=== PATIENT | male | born 1955 | race Caucasian/White ===

== ENCOUNTER 2019-11-01 01:33 | Outpatient (CLI) | payer OTHER, SELFPAY ==
[2019-11-01 18:53] LABS: SARS-CoV-2 RNA PCR Negative
== END 2019-11-01 01:34 | disposition home or self-care (01) ==
PROVIDERS: PCP Family Medicine; Visit Provider Internal Medicine Gastroenterology
DX: Z01.812 Encounter for preprocedural laboratory examination (principal); Z20.828 Contact with and (suspected) exposure to other viral communicable diseases
CPT/HCPCS: 87635; C9803; U0003

== ENCOUNTER 2019-11-03 00:51 | Day surgery (SDC) | payer OTHER, SELFPAY ==
[2019-10-31 15:30] VITALS: BMI 34.8
[2019-11-03 10:28] VITALS: BP 112/81; PULSE 111; RESP 20; TEMP 36.9; O2SAT 97; BMI 36.3
--- NOTE | 2019-11-03 10:48 | WPDANESEPPF ---
Anes - Initial Pre Proc Eval Procedure: Operation Date: 11/03/19 11:00 Proposed Procedures p Colonoscopy - Dakota Kenny MD Date/Time: 11/03/19 10:48 Surgeon: Dakota Kenny MD Pre Op Diagnosis: Diarrhea Patient Data Age: 64 Gender: M Height: 6 ft 2 in Weight: 128.2 kg Last Vital Signs Temp 98.4 F 11/03/19 10:28 Pulse 111 H 11/03/19 10:28 Resp 20 11/03/19 10:28 BP 112/81 11/03/19 10:28 Pulse Ox 97 11/03/19 10:28 Allergies Allergy/AdvReac Type Severity Reaction Status Date / Time Penicillins Allergy Severe ANAPHYLAXIS Verified 11/03/19 10:26 ENVIRONMENTAL Allergy Intermediate RHINITIS, Uncoded 11/03/19 10:26 ALLERGENS--CATS, DUST, CONGESTION GOLDENROD Home Medications Medication Instructions Recorded Confirmed Type balsalazide 2,250 mg PO TID 10/31/19 10/31/19 History cholecalciferol (vitamin D3) 10 mcg PO DAILY 10/31/19 10/31/19 History [Vitamin D3] diphenhydramine HCl [Allergy 25 mg PO HS 10/31/19 10/31/19 History (diphenhydramine)] oxucyqyk-cnctx-jra3-C-chelsie-bor 1 tablet PO DAILY 10/31/19 10/31/19 History [Awhcdpzd-Ecpjo-XOW(with boron)] lactobacillus combination no.8 3,000 mmu cells PO DAILY 10/31/19 10/31/19 History [Adult Probiotic] losartan-hydrochlorothiazide 1 tablet PO DAILY 10/31/19 10/31/19 History dixeqafy-vje-yaxid-vit K-lycop 1 tablet PO DAILY 10/31/19 10/31/19 History [Men's Multivitamin] omega 7-str-hud-fish oil [Fish Oil] 1 cap PO DAILY 10/31/19 10/31/19 History triamcinolone acetonide 1 spray INTRANASAL DAILY 10/31/19 10/31/19 History Patient hx anesthesia problems: none Family hx anesthesia problems: none PMFSH Past Medical History Medical History (Updated 11/03/19 @ 10:49 by Speedy Connolly MD) Arthritis Hypertension MONICA (obstructive sleep apnea) Anes - Eval Final PreProcedure Day of Procedure 11/03/19 10:48 Patient weight: obese Heart: regular rate and rhythm Lungs: clear to auscultation Airway: Mallampati scale class II Neurological: alert and oriented Last oral intake: >/= 8 hours ASA classification: III Emergent: no Anesthetic plan: proceed Anesthesia type and monitoring: general GIVS and standard monitoring Informed Consent: The patient's anesthetic plan and its attendant risks and benefits were discussed with the patient/family/POA. Questions were solicited and answers provided to the satisfaction of the patient/family/POA.
[2019-11-03] MEDS: LACTATED RINGERS 1,000 ML 150 ML IV CONT (10:52)
--- NOTE | 2019-11-03 11:11 | P.HP_ITS ---
History of Present Illness History of Present Illness Consent: Risks, benefits, and alternatives have been discussed and questions answered. Patient agrees to proceed with procedure. Chief complaint: Diarrhea Narrative: Obed Mello is a 64 year old W male referred for colonoscopy secondary to a 3 week history of diarrhea with multiple liquid bowel movements per day. He had 1 episode of hematochezia. Patient has known left- sided ulcerative colitis. His last colonoscopy was 6 years ago which revealed hemorrhoids and mild left-sided colitis. Patient was camping but he states his symptoms are present prior to this time. No sores or well water. No weight loss. No antibiotics. He states he had stool studies obtained the doctor calories office reportedly is are negative. [facility] Past Medical History Medical History (Updated 11/03/19 @ 11:13 by Dakota Kenny MD) Arthritis Chronic ulcerative colitis Hypertension MONICA (obstructive sleep apnea) Surgical History Surgical History (Updated 11/03/19 @ 11:13 by Dakota Kenny MD) History of carpal tunnel release History of right hip replacement Meds Home Medications and Allergies Home Medications Medication Instructions Recorded Confirmed Type balsalazide 2,250 mg PO TID 10/31/19 10/31/19 History cholecalciferol (vitamin D3) 10 mcg PO DAILY 10/31/19 10/31/19 History [Vitamin D3] diphenhydramine HCl [Allergy 25 mg PO HS 10/31/19 10/31/19 History (diphenhydramine)] hlbdfamt-crikn-yfh7-C-chelsie-bor 1 tablet PO DAILY 10/31/19 10/31/19 History [Rhynzhrc-Xjgsl-RIR(with boron)] lactobacillus combination no.8 3,000 mmu cells PO DAILY 10/31/19 10/31/19 History [Adult Probiotic] losartan-hydrochlorothiazide 1 tablet PO DAILY 10/31/19 10/31/19 History iemmtgdo-lih-befes-vit K-lycop 1 tablet PO DAILY 10/31/19 10/31/19 History [Men's Multivitamin] omega 1-mri-zbs-fish oil [Fish Oil] 1 cap PO DAILY 10/31/19 10/31/19 History triamcinolone acetonide 1 spray INTRANASAL DAILY 10/31/19 10/31/19 History Allergies Allergy/AdvReac Type Severity Reaction Status Date / Time Penicillins Allergy Severe ANAPHYLAXIS Verified 11/03/19 10:26 ENVIRONMENTAL Allergy Intermediate RHINITIS, Uncoded 11/03/19 10:26 ALLERGENS--CATS, DUST, CONGESTION GOLDENROD Vital Signs Vital Signs - 24 hr 11/03/19 10:28 Temperature 36.9 C Pulse Rate 111 H Respiratory Rate 20 Blood Pressure 112/81 Pulse Oximetry 97 Exam Const: Orientation/consciousness: patient oriented x3 Resp: Auscultation: clear to auscultation bilaterally Cardio: Rate: regular rate Rhythm: regular rhythm Heart sounds: no murmurs GI: GI Palp: Yes Soft to palpation, No Tenderness to palpation present (GI), Yes No hepatosplenomegaly present and No Palpable mass present Auscultation: normal bowel sounds Neuro: General: patient oriented x3 and no focal motor deficits Extrem: General: no pedal edema Assessment and Plan Additional Plan colonoscopy for evaluation of subacute diarrhea and history of chronic ulcerative colitis
[2019-11-03 11:37] VITALS: BP 92/64; PULSE 94; RESP 21; O2SAT 97
[2019-11-03 11:47] VITALS: BP 107/69; PULSE 97; RESP 20; O2SAT 97
[2019-11-03 11:57] VITALS: BP 103/76; PULSE 92; RESP 18; O2SAT 98
== END 2019-11-03 12:20 | disposition home or self-care (01) ==
PROVIDERS: PCP Family Medicine; Visit Provider Internal Medicine Gastroenterology
PROC: 0DJD8ZZ Inspection of Lower Intestinal Tract, Via Natural or Artificial Opening Endoscopic (ICD-10-PCS; CPT 45378; principal; 2019-11-03 11:00)
DX: K51.90 Ulcerative colitis, unspecified, without complications (principal); K63.5 Polyp of colon; D12.3 Benign neoplasm of transverse colon; K62.89 Other specified diseases of anus and rectum; I10 Essential (primary) hypertension; G47.33 Obstructive sleep apnea (adult) (pediatric); E66.9 Obesity, unspecified; Z68.36 Body mass index [BMI] 36.0-36.9, adult
CPT/HCPCS: 45385; 45380; 88305; J2370; J7120

== ENCOUNTER 2020-05-09 22:22 | Emergency (ER) | payer OTHER, SELFPAY ==
[2020-05-09 22:26] VITALS: BP 179/103; PULSE 117; RESP 12; TEMP 36.7; O2SAT 96
--- NOTE | 2020-05-10 00:02 | ED.EPISTAXIS ---
HPI - Epistaxis General Chief complaint: Epistaxis Stated complaint: epitaxis for 1 hour, htn Time Seen by Provider: 05/09/20 23:56 Source: patient and family Mode of arrival: ambulatory Limitations: no limitations History of Present Illness HPI Narrative: Patient 64 years old white male presents with left nostril bleeding started 3 hours prior to arrival to the emergency room after trying to blow his nose. Patient denying having similar symptoms, does not take blood thinner. Patient has been on Nasacort for years. Related Data Home Medications Medication Instructions Recorded Confirmed Adult Probiotic 3,000 mmu cells PO DAILY 10/31/19 10/31/19 Men's Multivitamin 1 tablet PO DAILY 10/31/19 10/31/19 cholecalciferol (vitamin D3) 10 mcg PO DAILY 10/31/19 10/31/19 [Vitamin D3] diphenhydramine HCl [Allergy 25 mg PO HS 10/31/19 10/31/19 (diphenhydramine)] qvnnaxeo-ozzlx-qkd7-C-chelsie-bor 1 tablet PO DAILY 10/31/19 10/31/19 [Sqnpyhbi-Xdgeh-ZSR(with boron)] losartan-hydrochlorothiazide 1 tablet PO DAILY 10/31/19 10/31/19 omega 0-ajp-frt-fish oil [Fish Oil] 1 cap PO DAILY 10/31/19 10/31/19 triamcinolone acetonide 1 spray INTRANASAL DAILY 10/31/19 10/31/19 Allergies Allergy/AdvReac Type Severity Reaction Status Date / Time Penicillins Allergy Severe ANAPHYLAXIS Verified 05/10/20 00:10 ENVIRONMENTAL Allergy Intermediate RHINITIS, Uncoded 05/10/20 00:10 ALLERGENS--CATS, DUST, CONGESTION GOLDENROD Review of Systems Review of Systems: Narrative: CONSTITUTIONAL: Denies fever, chills, or sweats. EYES: Denies visual changes, redness, or discharge. ENT: Denies rhinorrhea, congestion, sore throat, or otalgia. CARDIOVASCULAR: Denies chest pain, palpitations, or edema. RESPIRATORY: Denies cough or dyspnea. GASTROINTESTINAL: Denies abdominal pain, nausea, vomiting, or diarrhea. GENITOURINARY: Denies dysuria or hematuria. SKIN: Denies rash or itching. MUSCULOSKELETAL: Denies back pain, joint pain, or myalgia. NEUROLOGIC: Denies headache, numbness, or weakness. PSYCHIATRIC: Denies anxiety or depression. [facility] Past Medical History Medical History Arthritis Chronic ulcerative colitis Hypertension MONICA (obstructive sleep apnea) Surgical History Surgical History History of carpal tunnel release History of right hip replacement Social History Social History Gender identity (if verbalized by the patient): Male Exam Narrative: Exam Narrative: General appearance: Well-developed, well-nourished Skin: Normal color Head: Normocephalic, nontraumatic Eyes: Clear conjunctiva ENT: Left nostril showed dried blood, no active bleeding, unable to locate the source of bleeding. Neck: Supple, nontender Chest and respiratory: Airway patent, no respiratory distress, no accessory muscle use Heart: Regular rate/rhythm Vascular: Normal peripheral pulses, normal capillary refill. Neurologic: Alert and oriented ?3, ULTRASOUND TECHNOLOGIST is normal as tested, no gross motor deficit Course Course Emergency Course: Stable, improving Reevaluation(s) Reevaluation #1: Nasal exam showed no active bleeding, just dried blood. Unable to locate the source of bleeding. Patient was able to SNF and get rid of all the blood clot in the nasal cavity. Was able to stand up and walk in the ER for at least 15 minutes without activation of the nasal bleed. Patient declined any nasal packing at this time and would like to go home and see how it goes. Date: 05/10/20 Time: 01:51 Vital Signs Vital signs: Vital Signs Temperature 36.7 C
[2020-05-10 00:07] VITALS: BP 150/102; PULSE 111; RESP 20; O2SAT 96
[2020-05-10 01:50] VITALS: BP 147/90; PULSE 100; RESP 21; O2SAT 97
== END 2020-05-10 01:50 | disposition home or self-care (01) ==
PROVIDERS: Emergency Provider Emergency Medicine; PCP Family Medicine
DX: R04.0 Epistaxis (principal); M19.90 Unspecified osteoarthritis, unspecified site; I10 Essential (primary) hypertension; G47.30 Sleep apnea, unspecified
CPT/HCPCS: 99283

== ENCOUNTER 2020-12-10 10:33 | Outpatient (CLI) | payer OTHER, SELFPAY ==
--- NOTE | ~2020-12-10 | XR_ITS ---
EXAMINATION: XR lg joint inject/asp w image DATE: 12/10/2020 11:36 INDICATION: Left hip osteoarthritis TECHNIQUE: A time-out was performed to verify the patient's name, date of , and procedure to b e performed. The procedure including the risks, benefits, and alternatives was discussed with the pat ient. Risks discussed included bleeding and infection. The patient understood the risks and agreed to proceed. The skin overlying the left hip joint was prepped and draped in usual sterile fashion. An esthetic was administered with 1% lidocaine subcutaneously. A 22 G needle was advanced under fluoros copic guidance into the joint. Injection of 1 mL of Omnipaque 240 confirmed intra-articular position of the needle. Subsequently, injectate consisting of 4.5 mm of a 2:1 mixture of 0.25% Sensorcaine: 10 mg/mL Kenalog for a total dosage of 15 mg Kenalog was instilled. Washout of contrast was seen conf irming intra-articular administration. The needle was removed and the entry site was cleaned and dres sed. There were no immediate complications. Fluoroscopy exposure time was 0.1 minutes. The total num maricruz of images was 2. FINDINGS: Real-time fluoroscopy demonstrates the needle in the left hip joint. Patient's pain prior t o procedure:04/25. Patient's pain following the procedure: 03/25. IMPRESSION: 1. Successful left hip joint injection of local anesthetic and steroid with decrease in the patient's presenting pain. Reviewed, dictated and finalized at location A. IMPRESSION: 1. Successful left hip joint injection of local anesthetic and steroid with dec rease in the patient's presenting pain.
== END 2020-12-10 10:34 | disposition home or self-care (01) ==
LOC: ANHIMG 10:36
PROVIDERS: PCP Family Medicine; Visit Provider Orthopaedic Surgery
DX: M16.12 Unilateral primary osteoarthritis, left hip (principal)
CPT/HCPCS: 20610; 77002; J3301; Q9966

== ENCOUNTER 2023-02-09 10:47 | Outpatient (CLI) | payer MEDICARE, SELFPAY ==
[2023-02-09 11:18] LABS: Hematocrit 40.9 % (42.0-52.0); Hemoglobin 13.6 g/dL (14.0-18.0)
--- NOTE | 2023-02-09 11:18 | ECG_ITS ---
Measurements Intervals [place] Rate: 109 P: 65 HI: 144 QRS: 31 QRSD: 93 T: 42 QT: 330 QTc: 445 Interpretive Statements SINUS TACHYCARDIA ABNORMAL ECG NO PREVIOUS ECG AVAILABLE FOR COMPARISON Electronically Signed On 02-09-2023 11:33:11 ELECTRONIC SCALE TESTER by Jonh Gregorio D.O.
[2023-02-09 11:33] LABS: Albumin Level 4.2 g/dL (3.5-5.1); Estimated Glomerular Filt Rate > 60; Glucose 108 mg/dL (65-110)
[2023-02-09 12:22] LABS: Urine Cotinine NEGATIVE
== END 2023-02-09 10:48 | disposition home or self-care (01) ==
PROVIDERS: PCP Family Medicine; Visit Provider Orthopaedic Surgery
DX: M16.12 Unilateral primary osteoarthritis, left hip (principal); E78.5 Hyperlipidemia, unspecified; Z79.899 Other long term (current) drug therapy; I10 Essential (primary) hypertension; R94.31 Abnormal electrocardiogram [ECG] [EKG]
CPT/HCPCS: 80307; 82040; 82565; 82947; 85014; 85018; 93005

== ENCOUNTER 2023-04-08 07:57 | Outpatient (CLI) | payer MEDICARE, OTHER, SELFPAY ==
[2023-04-08 09:25] LABS: Basophils Absolute Auto 0.1 K/mm3 (0.0-0.1); Basophils Percent Auto 1.2 % (0.2-1.2); Eosinophils Absolute Auto 0.6 K/mm3 (0-0.3); Eosinophils Percent Auto 8.3 % (0-4.4); Hematocrit 42.2 % (42.0-52.0); Hemoglobin 13.9 g/dL (14.0-18.0); Immature Granulocyte Absolute 0.04 K/mm3 (0.00-0.031); Immature Granulocyte Percent A 0.6 % (0-0.5); Lymphocytes Absolute Auto 1.29 K/mm3 (0.9-3.2); Lymphocytes Percent Auto 18.9 % (18.3-44.2); Mean Corpuscular HGB Conc 32.9 g/dl (32-36); Mean Corpuscular Hemoglobin 31.7 pg (26-34); Mean Corpuscular Volume 96.3 fl (80-100); Mean Platelet Volume 8.8 fl (7.4-10.4); Monocytes Absolute Auto 0.7 K/mm3 (0.1-0.6); Monocytes Percent Auto 9.5 % (2.6-8.5); Neutrophils Absolute Auto 4.2 K/mm3 (1.3-6.7); Neutrophils Percent Auto 61.5 % (45.5-73.1); Platelet Count Result 364 k/mm3 (150-375); Red Blood Count 4.38 M/mm3 (4.6-6.20); Red Cell Distribution Width 13.3 % (11.5-14.5); White Blood Count 6.8 K/mm3 (4.5-10.0)
[2023-04-08 09:34] LABS: Albumin Level 4.4 g/dL (3.5-5.1)
[2023-04-08 09:35] LABS: Anion Gap 7 mmol/L (8-16); Blood Urea Nitrogen 20 mg/dL (9-20); Calcium 10.1 mg/dL (8.4-10.2); Carbon Dioxide 27 mmol/L (22-30); Chloride 103 mmol/L (98-107); Estimated Glomerular Filt Rate > 60; Glucose 101 mg/dL (65-110); Potassium 4.3 mmol/L (3.4-5.0); Sodium 137 mmol/L (137-145)
[2023-04-08 09:39] LABS: Urine Cotinine NEGATIVE
[2023-04-08 09:53] LABS: Hemoglobin A1C 5.2 % (<5.7)
[2023-04-08 10:49] LABS: MRSA (PCR) NOT DETECTED (NOT DETECTE)
== END 2023-04-08 07:58 | disposition home or self-care (01) ==
LOC: ANHSURGERY 08:04
PROVIDERS: Anesthesiology; PCP Family Medicine; Visit Provider Orthopaedic Surgery
DX: M16.12 Unilateral primary osteoarthritis, left hip (principal); I10 Essential (primary) hypertension; Z01.818 Encounter for other preprocedural examination
CPT/HCPCS: 36415; 80048; 80307; 82040; 83036; 85025; 87641

== ENCOUNTER 2023-05-04 01:09 | Day surgery (SDC) | payer MEDICARE, OTHER, SELFPAY ==
[2023-04-08 08:10] VITALS: BMI 36.9
--- NOTE | 2023-04-08 08:35 | PC.NURSE ---
Report to the Outpatient Waiting Room, entrance under the green pavilion located off [facility], at time __1000 on date ___05/04/23____. Planned Procedure Time: _1200 . Time changes happen often and if your time is changed the preop area will call you the afternoon before. - You and your visitor will be asked to self-screen and do not enter if you have any COVID symptoms. - A mask is optional within the hospital at this time. Patients may have clear liquids (water, carbonated beverages, clear teas, apple juice) until 3 hours prior to surgery (9:00 AM )with a maximum of 20 ounces. - No food from midnight until time of surgery - Infants may have breast milk until 4 hours before surgery, infant formula 6 hours prior to surgery. - Children will be allowed to drink immediately following surgery. If applicable, please bring a bottle or sippy cup to assist with drinking. Juice, water, soda, and popsicles are readily available. For infants on formula, please bring formula the day of surgery. Pacifiers are allowed. Take the following medications with a SIP of water the morning of surgery: ___NONE DO NOT STOP ANY OF YOUR OTHER PRESCRIPTION MEDICATIONS PRIOR TO SURGERY ?EXCEPT THE FOLLOWING Medications to discontinue per physician ___HOLD ALL VITAMINS AND SUPPLEMENTS 3 DAYS PRE OP .LAST DOSE MAY TAKE TYLENOL IF NEEDED FOR PAIN Please no make-up, nail urdu, hairspray, perfume, deodorant, or body powder the day of surgery. No jewelry (including any body piercings) or valuables the day of surgery, leave them at home. Please take a shower or bath the night before, or the morning of, surgery with an antibacterial soap. Wear comfortable, loose fitting clothing. Children are encouraged to wear pajamas. - Jewelry must be removed prior to entering the operating room. Rings and piercings that are not removed may be cut off. - The hospital will not accept responsibility for valuables. - Please leave all valuables, including medications, at home the day of surgery. If you are going home after surgery, a licensed batch mixing truck driver must drive you home. - NO public transportation without another adult if you receive anesthesia. - We recommend that an adult stay with you for 24 hours following discharge. - We also recommend that you do not drive, make important decision, drink alcoholic beverages, or take any drugs that were not prescribed by your health care provider for at least 24 hours after your discharge time. Follow any additional instructions given to you from your surgeon. If you or anyone in your household have experienced Covid symptoms in the past week, please notify your surgeon or the nurse liaison at the phone number below for possible testing. VERBAL AND WRITTEN instructions given to _PATIENT and asked if any additional questions and then verbalized understanding. Patient advised to call surgeon office or pre surgery nurse liaison [phone] if any additional questions.
[2023-04-08 09:09] VITALS: BP 135/92; PULSE 86; RESP 18; TEMP 37.2; O2SAT 98
[2023-05-04] VITALS (11 sets, daily range): BP systolic 120–140; BP diastolic 64–88; PULSE 83–111; RESP 12–18; TEMP 36.5–37.4; O2SAT 95–100
--- NOTE | ~2023-05-04 | XR_ITS ---
EXAMINATION: XR hip LT min 2V DATE: 05/04/2023 14:52 INDICATION: Postoperative evaluation following left total hip arthroplasty TECHNIQUE: Anteroposterior and lateral views of the left hip were obtained. COMPARISON: 02/01/2023 FINDINGS: Interval placement of a noncemented left total hip arthroplasty which appears well seated in near dunia tomic alignment. Expected soft tissue gas in the postoperative bed. No fractures identified. IMPRESSION: 1. Left total hip arthroplasty, negative for postoperative purposes. Reviewed, dictated and finalized at location A. IGHT TOOTH GEAR GENERATOR OPERATOR
[2023-05-04] MEDS: LACTATED RINGERS 1,000 ML 30 ML IV CONT ×2 (10:50→14:28)
[2023-05-04] MEDS: TRANEXAMIC ACID 1,000MG/ISO100 1,000 MG/100 ML BAG 200 MG IVPB (10:50)
--- NOTE | 2023-05-04 10:55 | WPDANESEPPF ---
Anes - Initial Pre Proc Eval Procedure: Operation Date: 05/04/23 12:00 Proposed Procedures p Left Total Hip Arthroplasty - Sebastian Jacob MD Date/Time: 05/04/23 10:55 Surgeon: Sebastian Jacob MD Pre Op Diagnosis: Prim O. A Lt Hip Patient Data Age: 67 Gender: M Height: 1.88 m Weight: 128.7 kg Last Vital Signs Temp 37.2 C 04/08/23 09:09 Pulse 86 04/08/23 09:09 Resp 18 04/08/23 09:09 BP 135/92 H 04/08/23 09:09 Pulse Ox 98 04/08/23 09:09 O2 Del Method Room Air 04/08/23 09:09 Allergies Allergy/AdvReac Type Severity Reaction Status Date / Time Penicillins Allergy Severe ANAPHYLAXIS Verified 05/04/23 10:13 ENVIRONMENTAL Allergy Intermediate RHINITIS, Uncoded 05/04/23 10:13 ALLERGENS--CATS, DUST, CONGESTION GOLDENROD crestor Allergy Unknown Gastrointestinal Uncoded 05/04/23 10:13 Upset terbinafine Allergy Unknown Rash Uncoded 05/04/23 10:13 Home Medications Medication Instructions Recorded Confirmed Type cholecalciferol (vitamin D3) 10 10 mcg PO DAILY 10/31/19 04/08/23 History mcg (400 unit) capsule (Vitamin D3) glucosamine 750 mp-kwsfqkhgldz-oay 1 tablet PO BID 10/31/19 04/08/23 History no1 625 mg-C 30 mg-chelsie 1 mg tablet (Webfaxtjrjh-Tfacwbtxfja-ROP) losartan 100 1 tablet PO DAILY 10/31/19 05/04/23 History mg-hydrochlorothiazide 25 mg tablet vhlawxnv-xsuosfzt-asgak acid 400 1 tablet PO DAILY 10/31/19 04/08/23 History mcg-vit K 20 mcg-lycop 300 mcg tablet (Men's Multivitamin) amlodipine 5 mg tablet 5 mg PO HS 05/22/20 05/04/23 History fexofenadine 60 mg tablet (Lianne 60 mg PO DAILY 07/25/21 05/04/23 History Allergy) fenofibrate 160 mg tablet 160 mg PO DAILY 01/22/23 05/04/23 History sulfasalazine 500 mg tablet 1,000 g PO BID 01/22/23 05/04/23 History acetaminophen 500 mg capsule 1,000 mg PO PRN PRN Pain 04/08/23 04/08/23 History azelastine 137 mcg (0.1 %) nasal 2 spray intranasal HS 04/08/23 05/04/23 History spray aerosol cyanocobalamin (vitamin B-12) 1,000 mcg PO DAILY 04/08/23 04/08/23 History 1,000 mcg capsule Laboratory Tests 05/04/23 10:22 Blood Type Pending Antibody Screen Pending Patient hx anesthesia problems: none Family hx anesthesia problems: none Results Review: All pre-operative results and documents have been reviewed as part of the pre-operative evaluation. [facility] Past Medical History Medical History Arthritis Chronic ulcerative colitis History of bruising easily History of stress test (~1989) Hyperlipidemia Hypertension MONICA (obstructive sleep apnea) Tachycardia Tinea pedis Surgical History Surgical History History of arthroscopy of left knee History of carpal tunnel release History of dental surgery History of facial surgery (~03/16/83) History of right hip replacement Family History Family History Father CHF (congestive heart failure) Mother Ovarian cancer Social History Social History Smoking packs per day: 2 Smoking cigarettes per day: 40.0 Years smoked: 20 Smoking pack-years: 40.00 Smoking status: Former smoker Tobacco type: cigarettes Smoking end date: 03/16/89 Additional smoking assessment comments: DENIES ANY FORM OF TOBACCO USE Alcohol intake: former Alcohol use details: RECOVERING ALCOHOLIC SOBER FOR 35 YRS Substance use: former Other substance usage details: I USED EVERYTHING Last use: RECOVERING DRUG ADDICT - CLEAN FOR 41 YRS Do You Feel Safe in your Home?: Yes Lack of Transportation: No Lack of Food: Never True Current Housing: I Have Housing Concerned About Future Housing: No Difficulty Paying Gas/Electric Bills: No Difficulty Paying for Meds: No Currently Unemployed: No
--- NOTE | 2023-05-04 12:00 | WPDHPUPDATE1 ---
History and Physical Update Update Date/Time: 05/04/23 12:00 History and Physical has been reviewed, including an updated exam of the patient. There are NO changes in the patient's condition. Risks, benefits, and alternatives have been discussed and questions answered. Patient agrees to proceed with procedure.
[2023-05-04] MEDS: ceFAZolin 3 GM/D5W 100 ML 100 ML IVPB (12:17)
[2023-05-04] MEDS: SODIUM CHLORIDE 0.9% IV 37.7 ML, MORPHINE SULFATE INJ (*CRX) 2 MG, ROPivacaine HCL 1% 2... INFILTRATE (12:52)
--- NOTE | 2023-05-04 14:28 | W.PM.PROC2 ---
Procedure Note - Detailed Date of Procedure 05/04/23 Pre-op Diagnosis Left hip degenerative arthritis. Post-op Diagnosis Same Procedure Performed Left Total Hip Arthroplasty. Surgeon Sebastian Jacob MD Anesthesia General Findings End stage arthritis. Very large stature. Description of Procedure The patient was given preoperative antibiotics. A general anesthetic was administered. The patient was carefully placed in the lateral decubitus position on the PEG board. The shoulders and hips were carefully positioned for component and leg length positioning reference. The hip was prepped and draped in the usual sterile fashion. A longitudinal incision was created over the posterior aspect of the greater trochanter. Careful dissection was brought down through the deep fascia with electrocautery. A minimally invasive optimized posterior approach to the hip was performed. The short external rotators and capsule were taken down in an L-shaped capsulotomy. The tissue was tagged for later repair using number 2 high strength suture. The femoral neck was measured and taken in situ. The femoral head was removed. The acetabulum was carefully exposed. The inferior capsule was released. The labrum was resected. The acetabulum was sequentially reamed to one over the intended cup size. The cup was impacted into position with excellent press-fit. Typical anatomic landmarks, including the bony contact points as well as the inferior transverse acetabular ligament were used to confirm cup positioning with preoperative templating. Attention was turned to the femur, which was carefully exposed. The hip was reamed and then broached sequentially. Excellent press-fit was obtained with the broach. The hip was trialed. Measurements were utilized, including the lesser trochanter as well as the center of the femoral head and the tip of the trochanter, and excellent assessment of the offset and leg lengths were confirmed. The real component was impacted into position. Trialing confirmed appropriate leg length and offset with soft tissue balancing as well apparent feel of the leg, both at the knee and the heel. Soft tissues were assessed using the the iliotibial band. Reduction of the posterior capsule and external rotators were also used as a secondary assessment. The hip was copiously irrigated with pulsatile lavage antibiotic solution periodically throughout the procedure. The real components were then assembled and reduced. The hip was stable throughout typical maneuvers, including extension, external rotation to 70 degrees, the position of sleep as well as flexion to 90 degrees with internal rotation past 35 degrees. The shake test confirmed stability without impingement. Osteophytes were removed as necessary. The short external rotators and capsule were repaired back to the posterior trochanter through drill holes. The deep fascia was repaired with running number 1 Quill suture, followed by 3-0 Stratafix suture and 4-0 Stratafix suture in the dermis. Steri-Strips were placed on the skin, followed by a sterile silver occlusive dressing. There were no complications. Meticulous hemostasis was maintained with the AquaMantys device. The patient was brought to the recovery room in stable condition. There were no complications. Implants The Accolade II hip stem, 127 degree size 7 , was utilized with excellent press-fit. The 56 mm Trident II acetabular component was impacted with excellent press-fit stability. 10 degree elevated liner. The +5, 36 mm Biolox ceramic femoral head was utilized. Estimated Blood Loss 200 Drains No Packing No Pathology None sent Complications No immediate complications Condition Stable Disposition PACU [facility] Billing Surgery - Charge Forward: Surgery Billing
[2023-05-04] MEDS: fentaNYL CITRATE INJ (*CRX) 100 MCG/2 ML VIAL 25 MCG IV PUSH ×6 (14:41→15:00)
[2023-05-04] MEDS: HYDROmorphone HCL INJ (*CRX) 1 MG/ML SYR 0.5 MG IV PUSH ×2 (15:14→15:24)
--- NOTE | 2023-05-04 16:04 | ADMGEN ---
This patient, Obed Mello, was admitted to Medical Room 251-01. Patient/family oriented to hospital policies and general routines including ID bracelet, bed and alarms, visiting hours, pain management, procedures, bathroom and other care routines, personal items, smoking policy, room service/diet, and visiting hours. Information on how to activate the Rapid Response Team has been discussed. Patient/Family are encouraged to report perceived risks to care and to ask questions if they do not understand what they are told or what they should do.
[2023-05-04 16:32] LABS: Hematocrit 40.7 % (42.0-52.0); Hemoglobin 13.3 g/dL (14.0-18.0)
[2023-05-04] MEDS: SENNA/DOCUSATE SODIUM TABLET 2 TAB PO (17:30)
[2023-05-04] MEDS: sulfaSALAzine 500 MG TABLET 1000 MG PO (17:30)
[2023-05-04] MEDS: oxyCODONE HCL (*CRX) 5 MG TAB IR PO ×2 (17:31→21:42)
[2023-05-04] MEDS: AZELASTINE HCL NASAL 0.1% 137 MCG/SPR 30 ML BTL 2 SPRAY NASAL (20:46)
[2023-05-04] MEDS: ceFAZolin 2 GM/D5W 50 ML 2 GM/50 ML BAG IVPB (20:47)
[2023-05-04] MEDS: amLODIPine BESYLATE 5 MG TABLET PO (20:48)
[2023-05-05 01:27] VITALS: BP 118/66; PULSE 111; RESP 18; TEMP 37.3; O2SAT 97
[2023-05-05] MEDS: ceFAZolin 2 GM/D5W 50 ML 2 GM/50 ML BAG IVPB (04:41)
[2023-05-05] MEDS: oxyCODONE HCL (*CRX) 5 MG TAB IR PO (04:48)
[2023-05-05 05:14] VITALS: BP 119/65; PULSE 104; RESP 18; TEMP 37.2; O2SAT 95
[2023-05-05 06:06] LABS: Basophils Absolute Auto 0.1 K/mm3 (0.0-0.1); Basophils Percent Auto 0.4 % (0.2-1.2); Eosinophils Absolute Auto 0.1 K/mm3 (0-0.3); Eosinophils Percent Auto 0.6 % (0-4.4); Hematocrit 35.7 % (42.0-52.0); Hemoglobin 11.9 g/dL (14.0-18.0); Immature Granulocyte Absolute 0.06 K/mm3 (0.00-0.031); Immature Granulocyte Percent A 0.5 % (0-0.5); Lymphocytes Absolute Auto 1.15 K/mm3 (0.9-3.2); Mean Corpuscular HGB Conc 33.3 g/dl (32-36); Mean Corpuscular Hemoglobin 31.8 pg (26-34); Mean Corpuscular Volume 95.5 fl (80-100); Mean Platelet Volume 8.9 fl (7.4-10.4); Monocytes Absolute Auto 1.3 K/mm3 (0.1-0.6); Neutrophils Absolute Auto 10.1 K/mm3 (1.3-6.7); Neutrophils Percent Auto 79.5 % (45.5-73.1); Platelet Count Result 291 k/mm3 (150-375); Red Blood Count 3.74 M/mm3 (4.6-6.20); Red Cell Distribution Width 13.7 % (11.5-14.5); White Blood Count 12.7 K/mm3 (4.5-10.0)
[2023-05-05 06:12] LABS: Anion Gap 4 mmol/L (8-16); Blood Urea Nitrogen 25 mg/dL (9-20); Calcium 9.1 mg/dL (8.4-10.2); Carbon Dioxide 28 mmol/L (22-30); Chloride 102 mmol/L (98-107); Estimated CRCL calculation 72 ml/min; Estimated Glomerular Filt Rate 55; Glucose 119 mg/dL (65-110); Potassium 3.7 mmol/L (3.4-5.0); Sodium 134 mmol/L (137-145)
--- NOTE | 2023-05-05 07:49 | PM.DS ---
DS: Admitting Diagnosis Discharge Date 05/05/23 Admitting Diagnosis Left hip arthritis. DS: Discharge Diagnosis Discharge Diagnosis (1) Status post total hip replacement, left: Code(s): Z96.642 - Presence of left artificial hip joint Status: Acute Assessment and Plan: Postop day 1: Total hip arthroplasty. Patient tolerated procedure well. No complications. Pain manageable with pain medication. No numbness or tingling. We had a lengthy discussion regarding postoperative wound care, limitations, expectations, and exercises. Patient shows good understanding. Patient has had initial physical therapy and is tolerating it well. DVT prophylaxis: 81 mg baby aspirin b.i.d. for 14 days. Short frequent walks. Pain medication: Percocet. Patient has followup appointment with Dr. Jacob in 3 weeks DS: Summary Hospital Course Reason for hospitalization: Total hip arthroplasty Hospital Course: Patient tolerated procedure well. Has had initial PT/OT. Status at Discharge Functional status at discharge: uses cane/walker Overall status at discharge: patient is progressing back to baseline Time Spent with Patient Time attestation: Total time spent providing and/or coordinating discharge services: Exam Narrative: 67 y/o overweight Male. Resting comfortably in chair. Wearing compression socks bilaterally. Dressing dry and intact with no drainage. Mild swelling. No ecchymosis. No erythema. No hematoma. Range of motion limited due to pain. Calf nontender. Thigh nontender. Neurologic status intact. No varicosities. Distal pulses palpable. DS: Data Data Completed and Pending Labs on day of discharge: Labs from last 24 hours 05/05/23 05/04/23 05/04/23 05:34 16:26 10:22 WBC 12.7 H RBC 3.74 L Hgb 11.9 L 13.3 L Hct 35.7 L 40.7 L MCV 95.5 MCH 31.8 MCHC 33.3 RDW 13.7 Plt Count 291 MPV 8.9 Immature Gran % (Auto) 0.5 Neut % (Auto) 79.5 H Lymph % (Auto) 9.0 L [place] % (Auto) 10.0 H Eos % (Auto) 0.6 Baso % (Auto) 0.4 Lymph # (Auto) 1.15 [place] # (Auto) 1.3 H Eos # (Auto) 0.1 Baso # (Auto) 0.1 Abs Immat Gran (auto) 0.06 H Absolute Neuts (auto) 10.1 H Absolute Nucleated RBC 0.0 Nucleated RBC % 0.0 Sodium 134 L Potassium 3.7 Chloride 102 Carbon Dioxide 28 Anion Gap 4 L BUN 25 H Creatinine 1.30 Estim Creat Clear Calc 72 Estimated GFR 55 L Glucose 119 H Calcium 9.1 Blood Type A Positive Antibody Screen Negative Discharge Plan Discharge Patient Disposition: Home, Self-Care Discharge Instructions: See green instruction sheets Patient Instructions: Antibiotic Form Stand Alone Forms: General Discharge Instructions Follow-up/Referrals: Mary Guadarrama PA [Physician Health Unit Coordinator] - Discharge Medications: New aspirin 81 mg tablet,delayed release (DR/EC) 81 mg PO BID 14 Days Qty: 28 0RF oxycodone-acetaminophen 5-325 mg tablet 1 - 2 tablet PO Q4-6H MDD 6 PRN (Reason: pain) Qty: 15 0RF Continued amlodipine 5 mg tablet 5 mg PO HS fexofenadine [Lianne Allergy] 60 mg tablet 60 mg PO DAILY sulfasalazine 500 mg tablet 1,000 g PO BID Rx Instructions: give with food (meal/snack) fenofibrate 160 mg tablet 160 mg PO DAILY losartan-hydrochlorothiazide 100-25 mg Tablet 1 tablet PO DAILY [id number]-chelsie-bor [Unmomzoy-Ztoxz-ATS(with boron)] [id number] mg Tablet 1 tablet PO BID cholecalciferol (vitamin D3) [Vitamin D3] 10 mcg (400 unit) Capsule 10 mcg PO DAILY Men's Multivitamin 400-20-300 mcg Tablet 1 tablet PO DAILY cyanocobalamin (vitamin B-12) 1,000 mcg Capsule 1,000 mcg PO DAILY acetaminophen 500 mg Capsule 1,000 mg PO PRN PRN (Reason: Pain) azelastine 137 mcg (0.1 %) aerosol,spray 2 spray INTRANASAL HS
[2023-05-05 08:08] VITALS: BP 123/64; PULSE 100; O2SAT 95
[2023-05-05] MEDS: hydroCHLOROthiazide 25 MG TABLET PO (08:15)
[2023-05-05] MEDS: LOSARTAN POTASSIUM 100 MG TABLET PO (08:15)
[2023-05-05] MEDS: SENNA/DOCUSATE SODIUM TABLET 2 TAB PO (08:15)
[2023-05-05] MEDS: predniSONE 5 MG TABLET PO (08:16)
[2023-05-05] MEDS: CYANOCOBALAMIN 1,000 MCG TABLET 1000 MCG PO (08:16)
[2023-05-05] MEDS: LORATADINE 10 MG TABLET PO (08:16)
[2023-05-05] MEDS: THERAPEUTIC MULTIVITAMINS/MINERALS TAB (*BKC) 1 TABLET PO (08:16)
[2023-05-05] MEDS: FENOFIBRATE 160 MG TABLET PO (08:17)
[2023-05-05] MEDS: sulfaSALAzine 500 MG TABLET 1000 MG PO (08:17)
[2023-05-05] MEDS: CHOLECALCIFEROL 400 UNITS TABLET (VIT D) PO (08:19)
[2023-05-05] MEDS: polyethylene glycoL 3350 17 GM POWD.PACK PO (08:19)
--- NOTE | 2023-05-05 08:24 | PCPTNOTE ---
Attempted PT evalustion, pt refused due to wanting pain medication and to eat prior to eval. RN present. Will follow.
[2023-05-05] MEDS: oxyCODONE HCL (*CRX) 5 MG TAB IR 10 MG PO ×2 (08:48→13:37)
--- NOTE | 2023-05-05 10:35 | WPDANESPN ---
Anes - Prog Note Post-Op Date/Time: 05/05/23 10:35 Cardiovascular status: normal Respiratory status: normal Airway patency: baseline Mental status: baseline Post-Op hydration status: normal Vital Signs: Last Vital Signs Temp 37.2 C 05/05/23 05:14 Pulse 100 05/05/23 08:08 Resp 18 05/05/23 05:14 BP 123/64 05/05/23 08:08 Pulse Ox 95 05/05/23 08:08 O2 Del Method Room Air 05/05/23 09:36 O2 Flow Rate 2 05/04/23 16:00 Pain Score (VAS): 05/23 I/O: Intake & Output 05/04/23 05/05/23 05/05/23 23:59 07:59 15:59 Intake Total 290 50 240 Balance 290 50 240 Laboratory Tests 05/05/23 05:34 05/05/23 05:34 05/04/23 05/04/23 05/05/23 10:22 16:26 05:34 WBC 12.7 H RBC 3.74 L Hgb 13.3 L 11.9 L Hct 40.7 L 35.7 L MCV 95.5 MCH 31.8 MCHC 33.3 RDW 13.7 Plt Count 291 MPV 8.9 Immature Gran % (Auto) 0.5 Neut % (Auto) 79.5 H Lymph % (Auto) 9.0 L [place] % (Auto) 10.0 H Eos % (Auto) 0.6 Baso % (Auto) 0.4 Lymph # (Auto) 1.15 [place] # (Auto) 1.3 H Eos # (Auto) 0.1 Baso # (Auto) 0.1 Abs Immat Gran (auto) 0.06 H Absolute Neuts (auto) 10.1 H Absolute Nucleated RBC 0.0 Nucleated RBC % 0.0 Sodium 134 L Potassium 3.7 Chloride 102 Carbon Dioxide 28 Anion Gap 4 L BUN 25 H Creatinine 1.30 Estim Creat Clear Calc 72 Estimated GFR 55 L Glucose 119 H Calcium 9.1 Blood Type A Positive Antibody Screen Negative Post-procedural complaints: none Patient Feedback: Patient satisfied with anesthetic care.
[2023-05-05] MEDS: ACETAMINOPHEN 500 MG TABLET 1000 MG PO (11:45)
[2023-05-05] MEDS: CEPHALEXIN 500 MG CAPSULE PO (12:20)
== END 2023-05-05 13:55 | disposition home or self-care (01) ==
LOC: ANHSURGERY 09:53 → ANH2MED 15:49
PROVIDERS: PCP Family Medicine; Visit Provider Orthopaedic Surgery
PROC: (CPT 27130; principal; 2023-05-04 12:00)
DX: M16.12 Unilateral primary osteoarthritis, left hip (principal); I10 Essential (primary) hypertension; E78.5 Hyperlipidemia, unspecified; G47.33 Obstructive sleep apnea (adult) (pediatric); K51.90 Ulcerative colitis, unspecified, without complications; Z87.891 Personal history of nicotine dependence; E66.9 Obesity, unspecified; Z68.36 Body mass index [BMI] 36.0-36.9, adult
CPT/HCPCS: 27130; 36415; 73502; 80048; 85014; 85018; 85025; 86850; 86900; 86901; 97110; 97161; 97165; 97530; 97535; A9270; C1776; J0171; J0690; J1100; J1170; J1885; J2250; J2270; J2371; J2405; J2704; J2795; J3010; J7120; J7512

== ENCOUNTER 2023-06-29 10:41 | Outpatient (CLI) | payer MEDICARE, OTHER, SELFPAY ==
--- NOTE | ~2023-06-29 | XR_ITS ---
Right Knee Technique: AP and lateral views were obtained. Clinical History: Pain Findings: No fracture or dislocation is seen. Osseous alignment is anatomic. Joint spaces are preserv ed without degenerative or erosive change. Soft tissues are unremarkable. No joint effusion is seen. Impression: Unremarkable right knee radiographs. Reviewed, dictated and finalized at location . Impression: Unremarkable right knee radiographs.
--- NOTE | ~2023-06-29 | XR_ITS ---
Left Knee Technique: AP and lateral views were obtained. Clinical History: Pain Findings: No fracture or dislocation is seen. There is probable medial compartment narrowing with med ial joint line spurring. Additional minimal patellar spurring and intercondylar notch spurring. Soft tissues are unremarkable. No joint effusion is seen. Impression: Degenerative change, as above, worst at the medial compartment. Reviewed, dictated and finalized at location . Impression: Degenerative change, as above, worst at the medial compartment.
== END 2023-06-29 10:42 ==
PROVIDERS: PCP Nurse Practitioner Family; Visit Provider Nurse Practitioner Family
DX: M25.562 Pain in left knee (principal); M25.561 Pain in right knee
CPT/HCPCS: 73560

== ENCOUNTER 2023-07-03 12:45 | Outpatient (CLI) | payer MEDICARE, OTHER, SELFPAY ==
--- NOTE | ~2023-07-03 | XR_ITS ---
EXAMINATION: XR hip LT min 2V DATE: 07/03/2023 13:04 INDICATION: Left hip arthroplasty TECHNIQUE: Anteroposterior and frog-leg lateral views of the left hip were obtained. COMPARISON: Left hip radiographs dated 05/04/2023 FINDINGS: Again seen is a noncemented left total hip arthroplasty which remains well seated in near-anatomic al ignment. No fracture. Osteophyte bridging across the cephalad margin of the pubic symphysis. Soft tis sues are unremarkable. IMPRESSION: 1. Expected appearance of a noncemented left total hip arthroplasty. No acute osseous abnormality. Reviewed, dictated and finalized at location A. IMPRESSION: 1. Expected appearance of a noncemented left total hip arthroplasty. No acute o sseous abnormality.
== END 2023-07-03 12:46 | disposition home or self-care (01) ==
LOC: ANHIMG 12:49
PROVIDERS: PCP Nurse Practitioner Family; Visit Provider Physician Assistant Surgical
DX: Z96.642 Presence of left artificial hip joint (principal)
CPT/HCPCS: 73502

== ENCOUNTER 2023-12-18 11:45 | Outpatient (CLI) | payer MEDICARE, OTHER, SELFPAY ==
--- NOTE | ~2023-12-18 | XR_ITS ---
AP view of the pelvis and AP and lateral views of the right hip Clinical history: Pain Findings: No acute fracture or dislocation is seen. Osseous alignment is anatomic. Bilateral hip arth roplasties are in place. Soft tissues are unremarkable. Impression: No acute abnormality is seen. Bilateral hip arthroplasty. Reviewed, dictated and finalized at location . Impression: No acute abnormality is seen. Bilateral hip arthroplasty.
== END 2023-12-18 11:46 | disposition home or self-care (01) ==
PROVIDERS: PCP Family Medicine; Visit Provider Orthopaedic Surgery
DX: M25.551 Pain in right hip (principal)
CPT/HCPCS: 73502

== ENCOUNTER 2024-07-29 10:11 | Outpatient (CLI) | payer MEDICARE, OTHER, SELFPAY ==
--- OUTSIDE RECORDS SUMMARY | 2024-07-29 10:23 | XMS_ITS | Data Portability ---
Author Organization [place] [facility] [facility] [employer], Main Office Address [address] [place] [address] Assessment Encounter Date Assessment Date Assessment LastModified by Organization Details LastModified Time 11/27/2023 11/27/2023 I have reconciled the patient's medications post their discharge from inpatient facility. Not available 11/27/2023 14:13:38 Plan of Treatment Reminders Order Date Submit Date Provider Last Modified By Organization Details Last Modified Time Details Appointments None recorded. Lab BMP, serum or plasma 2023 024 [email or web address] [id number] [facility] (Lab), [address] [place], [address], 4 14:38:03 gliadin Ab, serum [address] (Lab), [address] [place], [address], 3 16:16:52 PSA, serum or plasma [address] (Lab), [address] [place], [address], 3 16:17:12 CBC w/ auto diff [address] (Lab), [address] [place], [address], 3 16:15:54 hepatic function panel, serum [address] (Lab), [address] [place], [address], 3 16:13:18 lipid panel, serum [address] (Lab), [address] [place], [address], 3 16:17:43 BMP, serum or plasma [address] (Lab), [address] [place], [address], 3 16:11:14 glycohemogl obin, total, blood [address] (Lab), [address] [place], [address], 16:16:26 Referral None recorded. Procedures None recorded. Surgeries None recorded. Imaging None recorded. Medication Orders azelastine 137 mcg (0.1 %) nasal spray 2022 023 ROSATRAFFIQ [facility], [address] [place] [address], [address], 16:52:54 Patient TargetsNo targets recorded. Patient Instructions Encounter Date Encounter Id Patient Instructions Last Modified By Organization Details Last Modified Time 09/09/2022 [id number] dementia rating scale-2* ROSA Not available 09/09/2022 16:53:01 multi-dimensiona l health assessment questionnaire* ROSA Not available 09/09/2022 16:53:16 advance directiv es: care instructions Not available 09/09/2022 15:21:22 [place] Advance Directives Not available 09/09/2022 15:21:22 advance care planning: care instructions Not available 09/09/2022 15:21:22 Personalized a lt Plan and Screening Recommendations Advance Directives - Do you have one? Yes Advance Directives - Do we have your advance directive on file in your health record? No, please bring in a copy at your earliest convenience Primary Prevention/Interven tion (prevents or decreases the chance of common diseases from occurring) Smoking Risk: Non Smoker Alcohol Misuse Screening: Negative Weight: Appropriate Physical activity: Appropriate physical activity Nutrition: Good Fall Risk (screened today): Low Vaccines Pneumococcal: Ordered Recommended today Recommended today, but you have declined No further needed Influenza: Your next one in the fall of this year Chronic Disease Risks Stroke: Low Risk Intermediate Risk I have no recommendations Act claribel diagnosis, Continue current treatment plan Heart Attack: Low risk Intermediate Risk I have no recommendations Act claribel diagnosis, Continue current treatment plan Clogging of the Arteries: Low risk Intermediate Risk I have no recommendations Act claribel diagnosis, Continue current treatment plan Diabetes: Low Risk Active diagnosis, Continue current treatment plan Secondary Prevention/Interven tion (detects treatable diseases before they may cause symptoms, disability, or ) Prostate Cancer Screening: Colon Cancer Screening: Colonoscopy Date Screening Last Performed: _4 year ago___ Eye Disease Screening: Dementia Risk: Low Depression Screening: Negative [email or web address] Not available 09/09/2022 15:15:16 11/27/2023 [id number] Thank you for yo ur visit to our office today. We would like to request that you reach out to your referring or previous provider and request that they send us a Summary of Care in electronic form, so that we may have it on file in your medical record. At your visit, we had the medical records we needed to provide you with the best possible care; however, for insurance purposes, an electronic Summary of Care is beneficial. Thank you for your assistance in obtaining this information and we look forward to providing continued care to you. Please review your medication list from the Summary of Care for this visit. If there are any differences from what you are currently taking at home, please call us to discuss. [email or web address] Not available 11/27/2023 14:13:39 Reason for Referral None Reported. Results Created Date Observation Date Name Description Value Unit Range Abnormal Flag Note LastModifiedBy Organization Detail LastModifiedTime 09/10/19 23 09/10/2022 LIPID PANEL , STAND SHOSHANA cholesterol, total 234 mg/dL <200 high Not Available [facility] [address] [place], [address], 09/10/2022 15:24:35 09/10/19 23 09/10/2022 LIPID PANEL , STAND SH[place]HANA HDL cholesterol 51 mg/dL > or = 40 normal Not Available [facility] [address] [place], [address], 09/10/2022 15:24:35 09/10/19 23 09/10/2022 LIPID PANEL , STAND SHOSHANA triglyceride s 159 mg/dL <150 high Not Available [facility] [address] , [place], [address], 09/10/2022 15:24:35 09/10/19 23 09/10/2022 LIPID PANEL , STAND [place] LDL-choleste rol 154 mg/dL _(eliazar c) high Refer ence range : <100 Manpreet able range <100 mg/dL for prima ry preve ntion ; <70 mg/dL for patie nts with CHD or diabe tic patie nts with > or = 2 CHD risk facto rs. LDL-C is now calcu lated using the Bella n-Hop kins calcu akua n, which is a valid ated novel maria elena clarke than the Fried dale equat ion in the estim ation of LDL-C . Bella riddle SS et al. EFFIE. 2013; 310(1 9): 2061- 2068 (http ://ed ucati on.Buzz rosas Sportlyzers. com/f aq/FA Q164) Not Available [facility] [address] [place], [address], 09/10/2022 15:24:35 09/10/19 23 09/10/2022 LIPID PANEL , STAND SHOSHANA chol/HDLC ratio 4.6 (calc ) <5.0 normal Not Available [facility] [address] [place], [address], 09/10/2022 15:24:35 09/10/19 23 09/10/2022 LIPID PANEL , STAND [place] non HDL cholesterol 183 mg/dL _(eliazar c) <130 high For patie nts with diabe anya plus 1 major ASCVD risk facto r, treat ing to a non-H DL-C goal of <100 mg/dL (LDL- C of <70 mg/dL ) is ann suazo optio n. Not Available [address] [address] [place], [address], 09/10/2022 15:24:35 09/10/19 23 09/10/2022 BASIC METAB OLIC PANEL glucose 89 mg/dL 65-99 normal Fasti ng refer ence inter moe Not Available [facility] [address] [address] [place], [address], 09/10/2022 15:24:35 09/10/19 23 09/10/2022 BASIC METAB OLIC PANEL urea nitrogen (BUN) 19 mg/dL 7-25 normal Not Available [address] [address] [place], [address], 09/10/2022 15:24:35 09/10/19 23 09/10/2022 BASIC METAB OLIC PANEL creatinine 1.20 mg/dL 0.70-1 .35 normal Not Available [address] [address] [place], [address], 09/10/2022 15:24:35 09/10/19 23 09/10/2022 BASIC METAB OLIC PANEL eGFR 67 mL/mi n/1.7 3m2 > or = 60 normal The eGFR is based on the CKD-E PI 2020 kacyat ion. To calcu late the new eGFR from a previ ous Creat inine or Cysta naldo C resul t, go to https ://angela arias.tiago yuen/donny reed/ kdoqi /gfr% 5Fcal culat or Not Available [address] [address] [place], [address], 09/10/2022 15:24:35 09/10/19 23 09/10/2022 BASIC METAB OLIC PANEL BUN/creatini ne ratio NOT APPLIC ABLE (calc ) 6-22 Not Available [address], [address], 09/10/2022 15:24:35 09/10/19 23 09/10/2022 BASIC METAB OLIC PANEL sodium 137 mmol/ L 135-14 6 normal Not Available [address], [address], 09/10/2022 15:24:35 09/10/19 23 09/10/2022 BASIC METAB OLIC PANEL potassium 4.0 mmol/ L 3.5-5. 3 normal Not Available [address], [address], 09/10/2022 15:24:35 09/10/19 23 09/10/2022 BASIC METAB OLIC PANEL chloride 103 mmol/ L 98-110 normal Not Available [address], [address], 09/10/2022 15:24:35 09/10/19 23 09/10/2022 BASIC METAB OLIC PANEL carbon dioxide 24 mmol/ L 20-32 normal Not Available [address], [address], 09/10/2022 15:24:35 09/10/19 23 09/10/2022 BASIC METAB OLIC PANEL calcium 9.9 mg/dL 8.6-10 .3 normal Not Available [address], [address], 09/10/2022 15:24:35 09/10/19 23 09/10/2022 HEPAT IC FUNCT ION PANEL protein, total 6.8 g/dL 6.1-8. 1 normal Not Available [address], [address], 09/10/2022 15:24:36 09/10/19 23 09/10/2022 HEPAT IC FUNCT ION PANEL albumin 4.6 g/dL 3.6-5. 1 normal Not Available [address], [address], 09/10/2022 15:24:36 09/10/19 23 09/10/2022 HEPAT IC FUNCT ION PANEL globulin 2.2 g/dL_ (calc ) 1.9-3. 7 normal Not Available [address], [address], 09/10/2022 15:24:36 09/10/19 23 09/10/2022 HEPAT IC FUNCT ION PANEL albumin/glob ulin ratio 2.1 (calc ) 1.0-2. 5 normal Not Available [address], [address], 09/10/2022 15:24:36 09/10/19 23 09/10/2022 HEPAT IC FUNCT ION PANEL bilirubin, total 0.4 mg/dL 0.2-1. 2 normal Not Available [address], [address], 09/10/2022 15:24:36 09/10/19 23 09/10/2022 HEPAT IC FUNCT ION PANEL bilirubin, direct 0.1 mg/dL < or = 0.2 normal Not Available [address], [address], 09/10/2022 15:24:36 09/10/19 23 09/10/2022 HEPAT IC FUNCT ION PANEL bilirubin, indirect 0.3 mg/dL _(eliazar c) 0.2-1. 2 normal Not Available [address], [address], 09/10/2022 15:24:36 09/10/19 23 09/10/2022 HEPAT IC FUNCT ION PANEL alkaline phosphatase 57 U/L 35-144 normal Not Available [facility] - [address], [address], 09/10/2022 15:24:36 09/10/19 23 09/10/2022 HEPAT IC FUNCT ION PANEL AST 21 U/L 10-35 normal Not Available [address], [address], 09/10/2022 15:24:36 09/10/19 23 09/10/2022 HEPAT IC FUNCT ION PANEL ALT 13 U/L 9-46 normal Not Available [facility] [address], [address], 09/10/2022 15:24:36 09/10/19 23 09/10/2022 CBC (INCL UDES DIFF/ PLT) white blood cell count 5.8 thous and/u L 3.8-10 .8 normal Not Available [address], [address], 09/10/2022 15:24:37 09/10/19 23 09/10/2022 CBC (INCL UDES DIFF/ PLT) red blood cell count 4.32 omer on/uL 4.20-5 .80 normal Not Available [address], [address], 09/10/2022 15:24:37 09/10/19 23 09/10/2022 CBC (INCL UDES DIFF/ PLT) hemoglobin 14.5 g/dL 13.2-1 7.1 normal Not Available [address], [address], 09/10/2022 15:24:37 09/10/19 23 09/10/2022 CBC (INCL UDES DIFF/ PLT) hematocrit 42.9 % 38.5-5 0.0 normal Not Available [address], [address], 09/10/2022 15:24:37 09/10/19 23 09/10/2022 CBC (INCL UDES DIFF/ PLT) MCV 99.3 fL 80.0-1 00.0 normal Not Available [address], [address], 09/10/2022 15:24:37 09/10/19 23 09/10/2022 CBC (INCL UDES DIFF/ PLT) MCH 33.6 pg 27.0-3 3.0 high Not Available [address], [address], 09/10/2022 15:24:37 09/10/19 23 09/10/2022 CBC (INCL UDES DIFF/ PLT) MCHC 33.8 g/dL 32.0-3 6.0 normal Not Available [address], [address], 09/10/2022 15:24:37 09/10/19 23 09/10/2022 CBC (INCL UDES DIFF/ PLT) RDW 12.5 % 11.0-1 5.0 normal Not Available [address], [address], 09/10/2022 15:24:37 09/10/19 23 09/10/2022 CBC (INCL UDES DIFF/ PLT) platelet count 337 thous and/u L 140-40 0 normal Not Available [address], [address], 09/10/2022 15:24:37 09/10/19 23 09/10/2022 CBC (INCL UDES DIFF/ PLT) MPV 9.4 fL 7.5-12 .5 normal Not Available [address], [address], 09/10/2022 15:24:37 09/10/19 23 09/10/2022 CBC (INCL UDES DIFF/ PLT) absolute neutrophils 3642 cells /uL 1500-7 800 normal Not Available [address] [place], [address], 09/10/2022 15:24:37 09/10/19 23 09/10/2022 CBC (INCL UDES DIFF/ PLT) absolute lymphocytes 1311 cells /uL 850-39 00 normal Not Available [facility] [address], [address], 09/10/2022 15:24:37 09/10/19 23 09/10/2022 CBC (INCL UDES DIFF/ PLT) absolute monocytes 499 cells /uL 200-95 0 normal Not Available [facility] [address], [address], 09/10/2022 15:24:37 09/10/19 23 09/10/2022 CBC (INCL UDES DIFF/ PLT) absolute eosinophils 290 cells /uL 15-500 normal Not Available [facility] [address], [address], 09/10/2022 15:24:37 09/10/19 23 09/10/2022 CBC (INCL UDES DIFF/ PLT) absolute basophils 58 cells /uL 0-200 normal Not Available [facility] [address], [address], 09/10/2022 15:24:37 09/10/19 23 09/10/2022 CBC (INCL UDES DIFF/ PLT) neutrophils 62.8 % normal Not Available [facility] [address], [address], 09/10/2022 15:24:37 09/10/19 23 09/10/2022 CBC (INCL UDES DIFF/ PLT) lymphocytes 22.6 % normal Not Available [facility] [address], [address], 09/10/2022 15:24:37 09/10/19 23 09/10/2022 CBC (INCL UDES DIFF/ PLT) monocytes 8.6 % normal Not Available [facility] [address] [place], [address], 09/10/2022 15:24:37 09/10/19 23 09/10/2022 CBC (INCL UDES DIFF/ PLT) eosinophils 5.0 % normal Not Available [facility] [address] [address] [place], [address], 09/10/2022 15:24:37 09/10/19 23 09/10/2022 CBC (INCL UDES DIFF/ PLT) basophils 1.0 % normal Not Available [facility] [address] [address] [place], [address], 09/10/2022 15:24:37 09/10/19 23 09/10/2022 CLIEN T EDUCA TION TRACK ING client education tracking The Requi sitio n we recei tammie did not inclu de a [facility] accou nt numbe r. To preve nt delay s in testi ng and proce ssing of your order s pleas e provi de the follo wing infor matio n with every order submi tted: [facility] accou nt numbe r and accou nt name Clien t addre ss Clien t phone and fax numbe r NPI numbe r of order ing physi cody along with the physi cody name. Not Available [facility] [address] [address] [place], [address], 09/10/2022 15:24:38 09/10/1909/10/2022 PSA, TOTAL PSA, total 1.02 NG/mL < or = 4.00 normal The total PSA value from this assay syste m is stand ardiz ed again st the WHO stand shoshana. The test resul t will be appro ximat osman 20% lower when juan red to the equim olar- stand ardiz ed total PSA (Thakkar man Coult er). Juan rison of seria l PSA resul ts shoul d be inter prete d with this fact in mind. This test was perfo rmed using the Sieme ns chemi lumin escen t metho d. Value s obtai damaris from diffe rent assay metho ds canno t be used inter perkins eably . PSA level s, regar dless of value , shoul d not be inter prete d as absol [place] evide nce of the prese nce or absen ce of disea se. Not Available [facility] [address] [address], [place], [address], 09/10/2022 15:24:38 09/10/1909/10/2022 HEMOG LOBIN A1C hemoglobin A1C 4.9 %_of_ total _HGB <5.7 normal For the purpo se of scree grace for the prese nce of diabe anya: <5.7% Consi stent with the absen ce of diabe anya 5.7-6 .4% Consi stent with incre ased risk for diabe anya (pred iabet es) > or =6.5% Consi stent with diabe anya This assay resul t is consi stent with a decre ased risk of diabe anya. Curre ntly, no conse nsus exist s carmela mai use of hemog lobin A1c for diagn osis of diabe anya in child sherry. Accor ding to Ameri can Diabe anya Assoc iatio n (ADA) guide lines , hemog lobin A1c <7.0% repre sents optim al contr ol in non-p regna nt diabe tic patie nts. Diffe rent metri cs may apply to speci fic patie nt popul ation s. Stand ards of Medic al Care in Diabe anya(A DA). Not Available [facility] [address] [address], [place], [address], 09/10/2022 15:24:39 09/10/1909/10/2022 TEST IN QUEST ION- AMBIG UOUS ORDER question/pro blem: We are unabl e to ascer tain the test( s) you manpreet e from the follo wing writt en order . Not Available [facility] [address] [address], [place], [address], 09/10/2022 15:24:39 09/10/19 23 09/10/2022 TEST IN QUEST ION- AMBIG UOUS ORDER unclear order: GLIADI N ANTIBO DY Not Available [address], [address], 09/10/2022 15:24:39 09/10/19 23 09/10/2022 TEST IN QUEST ION- AMBIG UOUS ORDER specimen(s) submitted: SERUM SEPARA TOR TUBE Not Available [address], [address], 09/10/2022 15:24:39 09/10/1909/10/2022 TEST IN QUEST ION- AMBIG UOUS ORDER contact: * Not Available [address], [address], 09/10/2022 15:24:39 09/10/1909/10/2022 TEST IN QUE[facility] ION- AMBIG UOUS ORDER leonor HARDEN N ___ AUTHO RIZED SIGNA DADA ____ TO PREVE NT FURTH ER DELAY S IN TESTI GEMA, SAMIRA E COMPL ETE INFOR MATAXEL N ABOVE AND FAX TO [phone] TO RESOL VE THIS ORDER . Not Available [facility] [address] [place], [address], 09/10/2022 15:24:39 10/12/19 23 10/13/2022 GLIAD IN (DEAM IDATE D) AB (IGG, IGA) gliadin (deamidated) Ab (IgA) <1.0 U/mL Value Inter preta tion ----- ----- ----- ---- <15.0 Antib carmen not detec juan > or = 15.0 Antib carmen detec juan Not Available [facility] (Lab) [address] [place], [address], 10/13/2022 14:31:29 10/12/19 23 10/13/2022 GLIAD IN (DEAM IDATE D) AB (IGG, IGA) gliadin (deamidated) Ab (IgG) <1.0 U/mL Value Inter preta tion ----- ----- ----- ---- <15.0 Antib carmen not detec juan > or = 15.0 Antib carmen detec juan Not Available [facility] (Lab) [address] [place], [address], 10/13/2022 14:31:29 06/11/19 23 06/10/2022 XR, hip + pelvi s, bilat eral, 3 or 4 view [facility] [address] [place] [address] Patien t Name: MARILOU HSIEH Hilda Access ion #: [id number] Sex: M : 1955 3 Locati on: RAD Attend ing Physic tony: ARIS, WINNIE Orderi ng Physic tony: WINNIE HURST Exam Date: 023 9:53 AM Exam Name: XR HIP/PE LVIS BILAT 3-4V Admitt ing Diagno sis(es ): RADIOL OGY REPORT - FINAL EXAM: XR HIP/PE LVIS BILAT 3-4V HISTOR Y: BILATE RAL HIP PAIN66 -year- old male with bilate ral hip pain. COMPAR RON: Radiog raphs dated 2020. TECHNI QUE: AP and frog-l eg latera l views of the bilate ral hips and AP view of the pelvis were perfor med. FINDIN GS: No acute fractu res are identi fied about the pelvis or hips. There is a right total hip arthro plasty withou t eviden ce of peripr osthet ic fractu re, loosen ing, disloc ation, or other compli cation . There is modera te to severe osteoa rthrit is of the left hip, with near comple te loss of joint space, margin al osteop hytes, and subcho ndral sclero sis. There are bridgi ng Page 1 of 2 [facility] t Name: MARILOU HSIEH Access ion #: [id number] Sex: M : 1955 3 Exam Date: 023 9:53 AM Exam Name: XR HIP/PE LVIS BILAT 3-4V Admitt ing Diagno sis(es ): osteop hytes of the superi or margin of the pubic symphy sis. There is lower lumbar degene rative disc diseas e, not fully imaged here. IMPRES SHERICE: 1. No fractu re of the pelvis or hips. 2. Modera te to severe left hip osteoa rthrit is. 3. Postop erativ e change s of right total hip arthro plasty . 4. Lower lumbar degene rative disc diseas e. Create d and electr onical ly signed by: Norm escobedo MD Signed Date: 10:10 AM (CT) Dictat ed by: Norm escobedo MD DD: 3/28/2 023 10:10 AM (CT) DT: 023 10:10 AM (CT) Page 2 of 2 [facility] (Imaging) [address] [place], [address], 06/30/2022 08:54:09 06/11/19 23 06/10/2022 XR, hip + pelvi s, bilat eral No observ ation record ed. [email or web address] [facility] [address] [place], [address], 06/12/2022 09:22:16 06/27/19 23 06/26/2022 inj large jnt hip knee shoul dr KAILEY [facility] [address] [place] [address] Patien t Name: GERALD ILSMARILOU PHELPS Access ion #: [id number] Sex: M : 1955 8 Locati on: RAD Attend ing Physic tony: WINNIE HURST Orderi ng Physic tony: WINNIE HURST Exam Date: 023 8:07 AM Exam Name: XR INJ LG JNT HIP/KN EE/LEE ULDR Admitt ing Diagno sis(es ): RADIOL OGY REPORT - FINAL EXAM: XR INJ LG JNT HIP/KN EE/LEE ULDR HISTOR Y: LT HIP OA 66-yea r-old male with left hip pain, osteoa rthrit is. COMPAR RON: Radiog raphs dated 2022. TECHNI QUE: PRE-OK OCEDUR E: The patien t was osvaldo t to the fluoro scopy suite. Risks and benefi ts of hip inject ion were discus sed with the patien t, includ ing risks of bleedi ng, infect ion, and allerg ic reacti on. The patien t agreed to procee d and gave inform ed consen t. Time-o ut was perfor med. The skin of the left hip was marked with a marker , and the patien t agreed that this was the correc t side. Fluoro time: 0.8 minute s; DAP: 7.359 Gy.cm2 ; 2 fluoro scopic spot views were perfor med. Page 1 of 3 [facility] Patirohit t Name: MARILOU HSIEH Access ion #: [id number] Sex: M : 1955 8 Exam Date: 023 8:07 AM Exam Name: XR INJ LG JNT HIP/KN EE/LEE ULDR Admitt ing Diagno sis(es ): INJECT ATE: 3 ml 0.25% bupiva darell; 15 mg Kenalo g. PROCED URE: The patien t was placed in supine positi on on the fluoro scopy table. Fluoro scopic image was review ed and demons trated osteoa rthrit is. The femora l artery was palpat ed, and its locati on was marked on the skin. The left groin was preppe d and draped steril osman with Betadi ne. The skin and subcut aneous tissue s superf icial to the femora l neck were anesth etized with 1% lidoca ine withou t epinep hrine. A 22 gauge spinal needle was advanc ed to the femora l head-n celia juncti on under fluoro scopic visual izatio n. Small test inject ion of Isovue [address] was perfor med to confir m intra- articu lar placem ent. A fluoro scopic spot film was obtain ed. The mixtur e of the steroi d and local anesth etic was then inject ed into the left hip joint. The needle was then remove d. The skin was cleans ed, and a small bandag e was placed . The patien t tolera juan the proced ure well and there were no immedi ate compli cation s. IMPRES SHERICE: 1. Succes sful left hip inject ion with bupiva darell and Kenalo g. 2. The patien t was instru cted to monito r hip pain level closel y in the next few hours to days. Create d and electr onical ly signed by: Norm escobedo MD Signed Date: 023 11:18 AM (CT) Dictat ed by: Norm escobedo MD Page 2 of 3 [facility] Patirohit t Name: MARILOU HSIEH Access ion #: [id number] Sex: M : 1955 8 Exam Date: 8:07 AM Exam Name: XR INJ LG JNT HIP/KN EE/LEE ULDR Admitt ing Diagno sis(es ): DD: 11:18 AM (CT) DT: 11:18 AM (CT) Page 3 of [address] (Imaging) [address] [place], [address], 06/30/2022 08:52:22 06/27/19 23 06/26/2022 XR, hip, unila teral No observ ation record ed. [address] [place], [address], 06/30/2022 08:52:14 10/21/19 23 10/20/2022 inj large jnt hip knee shoul [facility] [address] [place] [address] Patirohit t Name: KALANI HSIEHRAFAEL Stevens Access ion #: [id number] Sex: M : 1955 0 Locati on: RAD Attend ing Physic tony: WINNIE HURST Orderi Physic tony: WINNIE HURST Exam Date: 10/21/19 23 8:30 AM Exam Name: XR INJ LG JNT HIP/KN EE/LEE ULDR Admitt ing Diagno sis(es ): RADIOL OGY REPORT - FINAL EXAM: XR INJ LG JNT HIP/KN EE/LEE ULDR HISTOR Y: Lt hip OA 67-yea r-old male with left hip pain, osteoa rthrit is. COMPAR RON: Left hip inject ion dated 2022. TECHNI QUE: PRE-OK OCEDUR E: The patien t was osvaldo t to the fluoro scopy suite. Risks and benefi ts of hip inject ion were discus sed with the patien t, includ ing risks of bleedi ng, infect ion, and allerg ic reacti on. The patien t agreed to procee d and gave inform ed consen t. Time-o ut was perfor med. The skin of the left hip was marked with a marker , and the patien t agreed that this was the correc t side. Fluoro time: 0.5 minute s; DAP: 3.740 Gy.cm2 ; single fluoro scopic spot view was perfor med. Page 1 of 3 [facility] Ciro t Name: MARILOU HSIEH Hilda Access ion #: [id number] Sex: M : 1955 0 Exam Date: 10/21/19 23 8:30 AM Exam Name: XR INJ LG JNT HIP/KN EE/LEE ULDR Admitt ing Diagno sis(es ): INJECT ATE: 3 ml 0.25 bupiva darell; 15 mg Kenalo g. PROCED URE: The patien t was placed in supine positi on on the fluoro scopy table. Fluoro scopic image was review ed and appleons sandy osteavni rthrit is. The femora l artery was palpat ed and its locati on was marked on the skin. The left groin was preppe d and draped steril osman with Betadi ne. The skin and subcut aneous tissue s superf icial to the femora l neck were anesth etized with 1% lidoca ine withou t epinep hrine. A 22 gauge spinal needle was advanc ed to the femora l head-n celia juncti on under fluoro scopic visual izatio n. Small test inject ion of Isovue [address] was perfor med to confir m intra- articu lar placem ent. A fluoro scopic spot film was obtain ed. The mixtur e of the steroi d and local anesth etic was then inject ed into the left hip joint. The needle was then remove d. The skin was cleans ed, and a small bandag e was placed . The patien t tolera juan the proced ure well, and there were no immedi ate compli cation s. TECHNI QUE: Succes sful left hip inject ion with Al carson and Fidencio hung. The patien t was instru cted to monito r hip pain level closel y in the next few hours to days. Create d and electr onical ly signed by: Norm escobedo MD Signed Date: 10/21/19 12:23 PM (CT) Dictat ed by: Norm escobedo MD Page 2 of 3 [facility] Ciro myers Name: MARILOU HSIEH Access ion #: [id number] Sex: M : 1955 0 Exam Date: 10/21/19 8:30 AM Exam Name: XR INJ LG JNT HIP/KN EE/LEE ULDR Admitt ing Diagno sis(es ): (CT) (CT) Page 3 of [address] (Imaging) [address] [place], [address], 07/19/2023 17:04:34 10/21/19 23 10/20/2022 XR, hip, unila teral No observ ation record ed. [address] [place], [address], 07/19/2023 17:04:34 12/16/19 23 12/15/2022 XR, hip + pelvi s, unila teral No observ ation record ed. [place] [address] [place], [address], 07/24/2023 11:55:47 01/23/20 23 01/22/2023 XR, hip + pelvi s, unila teral No observ ation record ed. [address], [place], [address], 07/24/2023 11:56:13 Result Notes None recorded. Problems Name Problem SNOMED Code Status Onset Date Resolution Date Notes Provider Name and Address Organization Details Recorded Time Arthritis of left hip 89191382506 61102 Active 2020 Not Available [facility] 3 13:11:35 Arthritis of left knee 56347777387 08212 Active 2020 Not Available [facility] 3 13:11:35 Backache 812317393 Active Not Available [facility] 3 13:11:35 Pneumonia 816653751 Active Not Available [facility] 3 13:11:35 Morbid obesity 913164323 Active Not Available [facility] 3 13:11:35 Osteoarth ritis of hip 830075180 Active [id number]||2024-07-29 11:09:00|XR_ITS|[facility]|Imaging|[id number]|"XR chest 2V 07/29/2024 10:43 Indication: Shortness of breath Procedure: 2 view chest Comparison: 02/25/2010 Findings: Heart size normal. There is atherosclerosis of the aorta. There are right middle lobe and l ingular infiltrates which may represent atelectasis or developing pneumonia. 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 No edema or pneumothorax. Impression: 1: Right middle lobe and lingular infiltrates, atelectasis versus pneumonia. Reviewed, dictated and finalized at location A. Impression: 1: Right middle lobe and lingular infiltrates, atelectasis versus pneumonia. "
--- OUTSIDE RECORDS SUMMARY | 2024-07-29 10:23 | XMS_ITS | Clinical Summary ---
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 Active losartan-hydroC HLOROthiazide (HYZAAR) 100-25 MG tablet Take 1 tablet by mouth daily. 03/19/2023 Active amLODIPine (NORVASC) 5 MG tablet Take 1 tablet (5 mg total) by mouth nightly at bedtime. 06/12/2023 Active fenofibrate 160 MG tablet Take 1 tablet (160 mg total) by mouth nightly at bedtime. 06/12/2023 Active fexofenadine (BAHMAN) 180 MG tablet Take 1 tablet (180 mg total) by mouth daily. Active multi vitamin/mineral s (THERA-M ENHANCED) tablet Take 1 tablet by mouth daily. Active vitamin D3 (CHOLECALCIFERO L) 25 mcg tablet Take 1 tablet (25 mcg total) by mouth 2 (two) times a day. Active vitamin B-12 (CYANOCOBALAMIN ) 500 MCG tablet Take 1 tablet (500 mcg total) by mouth nightly at bedtime. Active glucosamine-cho ndroitin 500-400 MG Cap Take 1 capsule by mouth 2 (two) times a day. 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 Gender Identity Not on file Sexual Orientation Not on file Last Filed Vital Signs Vital Sign Reading Time Taken Comments Blood Pressure 141/73 10/04/2023 7:20 PM CDT Pulse 87 10/04/2023 7:20 PM CDT Temperature 36.6 C (97.9 F) 10/04/2023 7:20 PM CDT Respiratory Rate 18 10/04/2023 7:20 PM CDT Oxygen Saturation 99% 10/04/2023 7:20 PM CDT Inhaled Oxygen Concentration - - Weight 130.9 kg (288 lb 9.3 oz) 10/04/2023 4:28 PM CDT Height 188 cm (6' 2 ) 10/04/2023 4:28 PM CDT Body Mass Index 37.05 10/04/2023 4:28 PM CDT Plan of Treatment Health Maintenance Due Date Last Done Comments Colorectal Cancer Screening Colonoscopy (10 Years) 1955 Hepatitis C 07/28/1975 Annual Medicare Wellness Visit 2022 COVID-19 Vaccine ( season) 2023 12/23/2022, 12/27/2021, 08/28/2021, Additional history exists DTaP, Tdap and Td Vaccines (2 - Td or Tdap) 07/05/2025 07/06/2015 Zoster Vaccines Completed 01/16/2022, 08/28/2021 Pneumococcal Vaccine: 50+ Years Completed 12/30/2022 RSV Immunization or 60+ Years Completed 12/30/2022 Meningococcal B Vaccine Aged Out No l onger eligible based on patient's age to complete this topic Meningococcal Vaccine Aged Out No fela dori eligible based on patient's age to complete this topic RSV Immunizations Under 20 Months Aged Out No longer eligible based on patient's age to complete this topic Insurance [facility] MEDICARE [facility] Care Teams Auto Job Estimator Relationship Specialty Start Date End Date New Referring, Provider PCP - General UNKNOWN PHYSICIAN SPECIALTY 10/04/23
== END 2024-07-29 10:12 | disposition home or self-care (01) ==
PROVIDERS: PCP Nurse Practitioner Family; Visit Provider Nurse Practitioner Family
DX: R06.02 Shortness of breath (principal); R91.8 Other nonspecific abnormal finding of lung field
CPT/HCPCS: 71046